=== PATIENT | female | born 1945 | race Caucasian/White ===

== ENCOUNTER → 2019-08-01 14:28 | Outpatient (CLI) | payer MEDICARE ==
[2013-02-03 11:24] VITALS: BMI 26.7
[~2019-08-01 14:28] MED LIST: ASCORBIC ACID500 MG PO; CENTRUM SILVER1 TA2 PO; FISH OIL 1,2001 CA1 PO; FLAXSEED OIL1000 MG PO; HCTZ25 MG PO; LEVOTHROID88 MCG PO; MELATONIN 3 MG1 TAB PO; MEVACOR20 MG PO; NORVASC5 MG PO; OS-CAL 500+D TA1 TAB PO; OXYBUTYNIN CHLOR5 MG PO; PLAVIX75 MG PO; PROTONIX20 MG PO; REGLAN10 MG PO; VITAMIN B COMPL1 TA1 PO; XALATAN 0.0052.5 ML EACH EYE
== END | disposition home or self-care (01) ==
LOC: D.US 14:28
PROVIDERS: ATTEND Family Medicine
DX: M79.661 Pain in right lower leg (principal); M79.89 Other specified soft tissue disorders